=== PATIENT | female | born 1975 | race Native Hawaiian/Other Pacific Islander ===

== ENCOUNTER 2019-02-12 07:51 | Emergency (ER) | payer OTHER ==
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
[2019-02-12] MEDS ORDERED: IBUPROFEN 800 MG TAB PO ONE (08:27)
[2019-02-12] MEDS ORDERED: tiZANidine TAB 4 MG TAB PO ONE (08:27)
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
[2019-02-12 11:20] VITALS: BP 103/52
== END 2019-02-12 11:21 | disposition home or self-care (01) ==
LOC: ED 07:51
DX: S39.012A Strain of muscle, fascia and tendon of lower back, initial encounter (principal); Z86.39 Personal history of other endocrine, nutritional and metabolic disease; Z79.1 Long term (current) use of non-steroidal anti-inflammatories (NSAID); Z79.899 Other long term (current) drug therapy; V49.49XA Driver injured in collision with other motor vehicles in traffic accident, initial encounter; Y93.89 Activity, other specified; Y92.89 Other specified places as the place of occurrence of the external cause; Y99.8 Other external cause status
CPT/HCPCS: 72100